=== PATIENT | female | born 1955 | race Caucasian/White ===

== ENCOUNTER 2016-10-30 08:29 | Emergency (ER) | payer SELFPAY ==
[2016-10-30] MEDS ORDERED: Albuterol/Ipratropium 3.0-0.5 MG/3 ML Neb Soln NEB ONE (08:35)
--- NOTE | 2016-10-30 08:38 | EDM.PDOC ---
ED HPI GENERAL MEDICAL PROBLEM - General Stated Complaint: SHORTNESS OF BREATH Time Seen by Provider: 10/30/16 08:30 - History of Present Illness INITIAL COMMENTS - FREE TEXT/NARRATIVE: HISTORY AND PHYSICAL: History of present illness: Patient 61-year-old white female has been concern of cough x2 weeks it's become productive she gets some shortness of breath she denies chest pain nausea vomiting fever chills or other complaints patient has had similar episodes in the past diagnosed bronchitis and has used an inhaler prior Review of systems: As per history of present illness and below otherwise all systems reviewed and negative. Past medical history: As per history of present illness and as reviewed below otherwise noncontributory. Surgical history: As per history of present illness and as reviewed below otherwise noncontributory. Social history: No reported history of drug or alcohol abuse. Family history: As per history of present illness and as reviewed below otherwise noncontributory. Physical exam: HEENT: Atraumatic, normocephalic, pupils reactive, negative for conjunctival pallor or scleral icterus, mucous membranes moist, throat clear, neck supple, nontender, trachea midline. Lungs: Slightly diminished reran expiratory wheeze noted, breath sounds equal bilaterally, chest nontender. Heart: S1S2, regular, negative for clicks, rubs, or JVD. Abdomen: Soft, nondistended, nontender. Negative for masses or hepatosplenomegaly. Negative for costovertebral tenderness. Pelvis: Stable nontender. Genitourinary: Deferred. Rectal: Deferred. Extremities: Atraumatic, negative for cords or calf pain. Neurovascular unremarkable. Neuro: Awake, alert, oriented. Cranial nerves II through XII unremarkable. Cerebellum unremarkable. Motor and sensory unremarkable throughout. Exam nonfocal. Diagnostics: Chest x-ray influenza screen Therapeutics: Albuterol ipratropium nebulizer Impression: #1 tracheobronchitis Definitive disposition and diagnosis as appropriate pending reevaluation and review of above. 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 Musculoskeletal History: Reports: None Neurological History: Reports: None Psychiatric History: Reports: None Endocrine/Metabolic History: Reports: None Hematologic History: Reports: None Immunologic History: Reports: None Oncologic (Cancer) History: Reports: Cervix Dermatologic History: Reports: None - Infectious Disease History Infectious Disease History: Reports: None - Past Surgical History Head Surgeries/Procedures: Reports: None Female Surgical History: Reports: Hysterectomy Other Female Surgeries/Procedures: cervical CA had chemo and radiation treatment 8 years ago Musculoskeletal Surgical History: Reports: None Other Oncologic Surgeries/Procedures: cervical CA Social & Family History - Tobacco Use Smoking Status *Q: Current Every Day Smoker Years of Tobacco use: 20 Packs/Tins Daily: 1 Used Tobacco, but Quit: No Second Hand Smoke Exposure: No - Caffeine Use Caffeine Use: Reports: Soda - Recreational Drug Use Recreational Drug Use: No ED ROS GENERAL - Review of Systems Review Of Systems: ROS reveals no pertinent complaints other than HPI. ED EXAM, GENERAL - Physical Exam Exam: See Below (See dictation) Departure - Departure Time of Disposition: 08:37 Disposition: Home, Self-Care 01 Condition: good Clinical Impression: Tracheobronchitis Additional Instructions: The following information is given to patients seen in the emergency department who are being discharged to home. This information is to outline your options for follow-up care. We provide all patients seen in our emergency department with a follow-up referral. The need for follow-up, as well as the timing and circumstances, are variable depending upon the specifics of your emergency department visit. If you don't have a primary care physician on staff, we will provide you with a referral. We always advise you to contact your personal physician following an emergency department visit to inform them of the circumstance of the visit and for follow-up with them and/or the need for any referrals to a consulting specialist. The emergency department will also refer you to a specialist when appropriate. This referral assures that you have the opportunity for followup care with a specialist. All of these measure are taken in an effort to provide you with optimal care, which includes your followup. Under all circumstances we always encourage you to contact your private physician who remains a resource for coordinating your care. When calling for followup care, please make the office aware that this follow-up is from your recent emergency room visit. If for any reason you are refused follow-up, please contact the [facility] emergency department at and asked to speak to the emergency department charge nurse. Augmentin as prescribed albuterol as prescribed follow up primary medical doctor one to 2 days quit smoking and return as needed as discussed
--- NOTE | 2016-10-30 09:20 | CR ---
EXAMINATION: Two-view chest (PA and Lateral views). HISTORY: Cough. FINDINGS: The trachea is midline. The cardiomediastinal silhouette is within normal limits. No pulmonary infil trates, effusions or pneumothorax. Osseous structures appear unremarkable. IMPRESSION: No acute cardiopulmonary process.
[2016-10-30 09:32] VITALS: BP 121/65
== END 2016-10-30 09:42 | disposition home or self-care (01) ==
LOC: MW.ED 08:29
DX: J40 Bronchitis, not specified as acute or chronic (principal); I10 Essential (primary) hypertension; F17.210 Nicotine dependence, cigarettes, uncomplicated; Z79.899 Other long term (current) drug therapy; Z90.710 Acquired absence of both cervix and uterus; Z85.41 Personal history of malignant neoplasm of cervix uteri
CPT/HCPCS: 71020; 71020-26; 87804; 94664; 99283; 99285-25

== ENCOUNTER 2016-11-16 17:08 | Emergency (ER) | payer SELFPAY ==
[2016-11-16 17:44] VITALS: BP 163/89
--- NOTE | 2016-11-16 17:54 | EDM.PDOC ---
ED HPI RENAL/ - General Chief Complaint: Genitourinary Problem Stated Complaint: BLADDER INFECTION,FEVER, OUT OF BP MEDICATION Time Seen by Provider: 11/16/16 17:42 Source of Information: Reports: Patient History Limitations: Reports: No limitations - History of Present Illness INITIAL COMMENTS - FREE TEXT/NARRATIVE: History of present illness: 61 year-old female presenting with multiple complaints [Patient presents with complaints of burning, urgency, frequency indicates that she has chronic UTIs status post radiation therapy. Patient also indicates she is out of her antihypertensives at this time] Review of systems: As per history of present illness and below otherwise all systems reviewed and negative. Past medical history: As per history of present illness and as reviewed below otherwise noncontributory. Surgical history: As per history of present illness and as reviewed below otherwise noncontributory. Social history: No reported history of drug or alcohol abuse. Family history: As per history of present illness and as reviewed below otherwise noncontributory. Physical exam: HEENT: Atraumatic, normocephalic, pupils reactive, negative for conjunctival pallor or scleral icterus, mucous membranes moist, throat clear, neck supple, nontender, trachea midline. Lungs: Clear to auscultation, breath sounds equal bilaterally, chest nontender. Heart: S1S2, regular, negative for clicks, rubs, or JVD. Abdomen: Soft, nondistended, nontender. Negative for masses or hepatosplenomegaly. Negative for costovertebral tenderness. Pelvis: Stable nontender. Genitourinary: Deferred. Rectal: Deferred. Extremities: Atraumatic, negative for cords or calf pain. Neurovascular unremarkable. Neuro: Awake, alert, oriented. Cranial nerves II through XII unremarkable. Cerebellum unremarkable. Motor and sensory unremarkable throughout. Exam nonfocal. Global assessment is benign save for subjective complaints the patient listed above in history of present illness. Diagnostics: [UA] Therapeutics: [] Impression: [UTI] Plan: [Refill blood pressure medicine/antibiotics and Pyridium] Definitive disposition and diagnosis as appropriate pending reevaluation and review of above. - Related Data Allergies/ADRs: Allergies Allergy/AdvReac Type Severity Reaction Status Date / Time No Known Allergies Allergy Verified 07/12/16 12:13 Home Meds: Home Meds Lisinopril 10 mg PO DAILY #90 tablet 11/16/16 [Rx] Nitrofurantoin Monohyd/M-Cryst [Macrobid 100 mg Capsule] 100 mg PO BID #20 capsule 11/16/16 [Rx] Phenazopyridine HCl [Pyridium] 200 mg PO Q8HR #12 tablet 11/16/16 [Rx] atorvaSTATin [Lipitor] 20 mg PO DAILY #90 tablet 11/16/16 [Rx] Past Medical History HEENT History: Reports: None Cardiovascular History: Reports: High cholesterol, Hypertension Respiratory History: Reports: None Gastrointestinal History: Reports: Cholelithiasis Genitourinary History: Reports: None 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 Musculoskeletal History: Reports: None Neurological History: Reports: None Psychiatric History: Reports: None Endocrine/Metabolic History: Reports: None Hematologic History: Reports: None Immunologic History: Reports: None Oncologic (Cancer) History: Reports: Cervix Dermatologic History: Reports: None - Infectious Disease History Infectious Disease History: Reports: None - Past Surgical History Head Surgeries/Procedures: Reports: None Female Surgical History: Reports: Hysterectomy Other Female Surgeries/Procedures: cervical CA had chemo and radiation treatment 8 years ago Musculoskeletal Surgical History: Reports: None Other Oncologic Surgeries/Procedures: cervical CA Social & Family History - Family History Family Medical History: Noncontributory - Tobacco Use Smoking Status *Q: Current Every Day Smoker Years of Tobacco use: 30 Packs/Tins Daily: 1 Used Tobacco, but Quit: No Second Hand Smoke Exposure: No - Caffeine Use Caffeine Use: Reports: Soda - Recreational Drug Use Recreational Drug Use: No ED ROS GENERAL - Review of Systems Review Of Systems: See Below (History of present illness) ED EXAM, RENAL/ - Physical Exam Exam: See Below (History of present illness) Course - Vital Signs Last Recorded V/S: Last Vital Signs Temp 37.2 C 11/16/16 17:40 Pulse 118 H 11/16/16 17:40 Resp 18 11/16/16 17:40 BP 163/89 H 11/16/16 17:40 Pulse Ox 96 11/16/16 17:40 - Orders/Labs/Meds Labs: Laboratory Tests 11/16/16 Range/Units 17:45 Urine Color YELLOW Urine Appearance SLT CLOUDY Urine pH 5.5 (5.0-8.0) Ur Specific [place] 1.010 (1.001-1.035) Urine Protein TRACE (NEGATIVE) mg/dL Urine Glucose (UA) NEGATIVE (NEGATIVE) mg/dL Urine Ketones NEGATIVE (NEGATIVE) mg/dL Urine Occult Blood LARGE H (NEGATIVE) Urine Nitrite POSITIVE H (NEGATIVE) Urine Bilirubin NEGATIVE (NEGATIVE) Urine Urobilinogen 0.2 (<2.0) EU/dL Ur Leukocyte Esterase MODERATE (NEGATIVE) Urine RBC 4-6 (0-2/HPF) Urine WBC 70-75 (0-5/HPF) Ur Epithelial Cells FEW (NONE-FEW) Urine Bacteria 3+ H (NEGATIVE) Departure - Departure Time of Disposition: 18:22 Disposition: Home, Self-Care 01 Condition: good Clinical Impression: UTI, Urinary tract infectious disease Prescriptions: Phenazopyridine HCl [Pyridium] 200 mg PO Q8HR #12 tablet Lisinopril 10 mg PO DAILY #90 tablet Nitrofurantoin Monohyd/M-Cryst [Macrobid 100 mg Capsule] 100 mg PO BID #20 capsule atorvaSTATin [Lipitor] 20 mg PO DAILY #90 tablet Instructions: Urinary Tract Infection, Adult, [id number] Forms: ED Department Discharge Additional Instructions: The following information is given to patients seen in the emergency department who are being discharged to home. This information is to outline your options for follow-up care. We provide all patients seen in our emergency department with a follow-up referral. The need for follow-up, as well as the timing and circumstances, are variable depending upon the specifics of your emergency department visit. If you don't have a primary care physician on staff, we will provide you with a referral. We always advise you to contact your personal physician following an emergency department visit to inform them of the circumstance of the visit and for follow-up with them and/or the need for any referrals to a consulting specialist. The emergency department will also refer you to a specialist when appropriate. This referral assures that you have the opportunity for follow-up care with a specialist. All of these measure are taken in an effort to provide you with optimal care, which includes your follow-up. Under all circumstances we always encourage you to contact your private physician who remains a resource for coordinating your care. When calling for follow-up care, please make the office aware that this follow-up is from your recent emergency room visit. If for any reason you are refused follow-up, please contact the [facility] Emergency Department at and asked to speak to the emergency department charge nurse. I refilled her blood pressure medicine please begin to follow up with primary care provider because medication is the only way to manage her blood pressures are labs that need to be monitored You have been prescribe antibiotics for her UTI as well as a medication to help with the pain and discomfort of the infection Followup with PCP 1-2 days ED as needed as discussed
== END 2016-11-16 18:33 | disposition home or self-care (01) ==
LOC: MW.ED 17:08
DX: N39.0 Urinary tract infection, site not specified (principal); E78.00 Pure hypercholesterolemia, unspecified; I10 Essential (primary) hypertension; F17.210 Nicotine dependence, cigarettes, uncomplicated; Z79.899 Other long term (current) drug therapy
CPT/HCPCS: 81001; 99283

== ENCOUNTER 2017-04-06 18:37 | Emergency (ER) | payer SELFPAY ==
--- NOTE | 2017-04-06 19:18 | EDM.PDOC ---
ED HPI GENERAL MEDICAL PROBLEM - General Chief Complaint: Respiratory Problem Stated Complaint: CONGESTION ABDOMINAL Time Seen by Provider: 04/06/17 19:00 - History of Present Illness INITIAL COMMENTS - FREE TEXT/NARRATIVE: HISTORY AND PHYSICAL: History of present illness: Patient 61-year-old white female who presents with a concern of cough and congestion she is a smoker she states it's been mildly productive she denies fever chills nausea vomiting chest pain palpitations or other concern. Review of systems: As per history of present illness and below otherwise all systems reviewed and negative. Past medical history: As per history of present illness and as reviewed below otherwise noncontributory. Surgical history: As per history of present illness and as reviewed below otherwise noncontributory. Social history: No reported history of drug or alcohol abuse. Family history: As per history of present illness and as reviewed below otherwise noncontributory. Physical exam: HEENT: Atraumatic, normocephalic, pupils reactive, negative for conjunctival pallor or scleral icterus, mucous membranes moist, throat clear, neck supple, nontender, trachea midline. Lungs: Clear to auscultation, breath sounds equal bilaterally, chest nontender. Heart: S1S2, regular, negative for clicks, rubs, or JVD. Abdomen: Soft, nondistended, nontender. Negative for masses or hepatosplenomegaly. Negative for costovertebral tenderness. Pelvis: Stable nontender. Genitourinary: Deferred. Rectal: Deferred. Extremities: Atraumatic, negative for cords or calf pain. Neurovascular unremarkable. Neuro: Awake, alert, oriented. Cranial nerves II through XII unremarkable. Cerebellum unremarkable. Motor and sensory unremarkable throughout. Exam nonfocal. Diagnostics: Chest x-ray Therapeutics: None Impression: #1 tracheobronchitis Definitive disposition and diagnosis as appropriate pending reevaluation and review of above. right rib Pain Score (Numeric/FACES): 6 - Related Data Allergies Allergy/AdvReac Type Severity Reaction Status Date / Time No Known Allergies Allergy Verified 07/12/16 12:13 Home Meds: Home Meds Lisinopril 10 mg PO DAILY #90 tablet 11/16/16 [Rx] atorvaSTATin [Lipitor] 20 mg PO DAILY #90 tablet 11/16/16 [Rx] Aspirin 81 mg PO BEDTIME 04/06/17 [History] Past Medical History HEENT History: Reports: None Cardiovascular History: Reports: High Cholesterol, Hypertension Respiratory History: Reports: None Gastrointestinal History: Reports: Cholelithiasis Genitourinary History: Reports: None [employer] History: Reports: None Musculoskeletal History: Reports: None Neurological History: Reports: None Psychiatric History: Reports: None Endocrine/Metabolic History: Reports: None Hematologic History: Reports: None Immunologic History: Reports: None Oncologic (Cancer) History: Reports: Cervix Dermatologic History: Reports: None - Infectious Disease History Infectious Disease History: Reports: None - Past Surgical History Head Surgeries/Procedures: Reports: None Female Surgical History: Reports: Hysterectomy Other Female Surgeries/Procedures: cervical CA had chemo and radiation treatment 8 years ago Musculoskeletal Surgical History: Reports: None Other Oncologic Surgeries/Procedures: cervical CA Social & Family History - Family History Family Medical History: Noncontributory - Tobacco Use Smoking Status *Q: Current Every Day Smoker Years of Tobacco use: 20 Packs/Tins Daily: 0.1 Used Tobacco, but Quit: No Second Hand Smoke Exposure: No - Caffeine Use Caffeine Use: Reports: Soda, Tea - Recreational Drug Use Recreational Drug Use: No ED ROS GENERAL - Review of Systems Review Of Systems: ROS reveals no pertinent complaints other than HPI. ED EXAM, GENERAL - Physical Exam Exam: See Below (See dictation) Course - Vital Signs Last Recorded V/S: Last Vital Signs Temp 36.3 C 04/06/17 18:54 Pulse 102 H 04/06/17 18:54 Resp 18 04/06/17 18:54 BP 141/87 H 04/06/17 18:54 Pulse Ox 93 L 04/06/17 18:54 Departure - Departure Time of Disposition: 19:17 Disposition: Home, Self-Care 01 Condition: Good Clinical Impression: Tracheobronchitis - Discharge Information Referrals: PCP,None [Primary Care Provider] - Additional Instructions: The following information is given to patients seen in the emergency department who are being discharged to home. This information is to outline your options for follow-up care. We provide all patients seen in our emergency department with a follow-up referral. The need for follow-up, as well as the timing and circumstances, are variable depending upon the specifics of your emergency department visit. If you don't have a primary care physician on staff, we will provide you with a referral. We always advise you to contact your personal physician following an emergency department visit to inform them of the circumstance of the visit and for follow-up with them and/or the need for any referrals to a consulting specialist. The emergency department will also refer you to a specialist when appropriate. This referral assures that you have the opportunity for followup care with a specialist. All of these measure are taken in an effort to provide you with optimal care, which includes your followup. Under all circumstances we always encourage you to contact your private physician who remains a resource for coordinating your care. When calling for followup care, please make the office aware that this follow-up is from your recent emergency room visit. If for any reason you are refused follow-up, please contact the [facility] emergency department at and asked to speak to the emergency department charge nurse. Follow-up primary medical doctor 1-2 days quit smoking Augmentin albuterol as prescribed return as needed as discussed
[2017-04-06 20:01] VITALS: BP 121/64
--- NOTE | 2017-04-07 15:14 | CR ---
EXAM DATE: 04/06/17 PATIENT'S AGE: 61 Patient: LESLI MARQUEZ Facility: [place], [place] Site . Site : [id number] Study: XRay Chest [id number] 7:38:37 PM Ordering Physician: Eulalia Fraire Final Report: CHEST 2 VIEWS INDICATION: Cough. IMPRESSION: Normal heart size and vascular pattern. Lungs are clear. No pneumothorax or pleural abnormality. Dictated by Abe Olvera MD @ Apr 06 2017 7:43PM (Electronic Signature) Report Signed by Proxy. [facility]
== END 2017-04-06 20:04 | disposition home or self-care (01) ==
LOC: MW.ED 18:37
DX: J40 Bronchitis, not specified as acute or chronic (principal); F17.210 Nicotine dependence, cigarettes, uncomplicated; Z90.710 Acquired absence of both cervix and uterus; Z85.41 Personal history of malignant neoplasm of cervix uteri; I10 Essential (primary) hypertension; E78.00 Pure hypercholesterolemia, unspecified; Z79.899 Other long term (current) drug therapy
CPT/HCPCS: 71020; 71020-26; 99282; 99284

== ENCOUNTER 2017-06-19 10:41 | Emergency (ER) | payer SELFPAY ==
[2017-06-19] MEDS ORDERED: Albuterol/Ipratropium 3.0-0.5 MG/3 ML Neb Soln NEB ONE (11:00)
--- NOTE | 2017-06-19 11:02 | EDM.PDOC ---
ED HPI GENERAL MEDICAL PROBLEM - General Chief Complaint: Respiratory Problem Stated Complaint: COUGH Time Seen by Provider: 06/19/17 11:01 Source of Information: Reports: Patient - History of Present Illness INITIAL COMMENTS - FREE TEXT/NARRATIVE: HISTORY AND PHYSICAL: History of present illness: []Patient presents with 90-oalt-kkeq history of smoking, for 2-3 weeks and congestion no fever chills sweats no chest pain shortness breath headache dizziness palpitation about a urine symptoms Review of systems: As per history of present illness and below otherwise all systems reviewed and negative. Past medical history: As per history of present illness and as reviewed below otherwise noncontributory. Surgical history: As per history of present illness and as reviewed below otherwise noncontributory. Social history: No reported history of drug or alcohol abuse. Family history: As per history of present illness and as reviewed below otherwise noncontributory. Physical exam: HEENT: Atraumatic, normocephalic, pupils reactive, negative for conjunctival pallor or scleral icterus, mucous membranes moist, throat clear, neck supple, nontender, trachea midline. Lungs: Clear to auscultation, breath sounds equal bilaterally, chest nontender. Heart: S1S2, regular, negative for clicks, rubs, or JVD. Abdomen: Soft, nondistended, nontender. Negative for masses or hepatosplenomegaly. Negative for costovertebral tenderness. Pelvis: Stable nontender. Genitourinary: Deferred. Rectal: Deferred. Extremities: Atraumatic, negative for cords or calf pain. Neurovascular unremarkable. Neuro: Awake, alert, oriented. Cranial nerves II through XII unremarkable. Cerebellum unremarkable. Motor and sensory unremarkable throughout. Exam nonfocal. Diagnostics: []Chest 2 views Influenza Therapeutics: []DuoNeb Z-Jimmy HFA Phenergan With Codeine to 40 mL Impression: []Acute bronchitis Definitive disposition and diagnosis as appropriate pending reevaluation and review of above. - Related Data Allergies Allergy/AdvReac Type Severity Reaction Status Date / Time No Known Allergies Allergy Verified 06/19/17 11:20 Home Meds: Home Meds atorvaSTATin [Lipitor] 20 mg PO DAILY #90 tablet 11/16/16 [Rx] Aspirin 81 mg PO BEDTIME 04/06/17 [History] Lisinopril 20 mg PO DAILY 06/19/17 [History] Past Medical History HEENT History: Reports: None Cardiovascular History: Reports: High Cholesterol, Hypertension Respiratory History: Reports: None Gastrointestinal History: Reports: Cholelithiasis Genitourinary History: Reports: None BAKERY HELPER History: Reports: None Musculoskeletal History: Reports: None Neurological History: Reports: None Psychiatric History: Reports: None Endocrine/Metabolic History: Reports: None Hematologic History: Reports: None Immunologic History: Reports: None Oncologic (Cancer) History: Reports: Cervix Dermatologic History: Reports: None - Infectious Disease History Infectious Disease History: Reports: None - Past Surgical History Head Surgeries/Procedures: Reports: None Female Surgical History: Reports: Hysterectomy Other Female Surgeries/Procedures: cervical CA had chemo and radiation treatment 8 years ago Musculoskeletal Surgical History: Reports: None Other Oncologic Surgeries/Procedures: cervical CA Social & Family History - Family History Family Medical History: Noncontributory - Tobacco Use Smoking Status *Q: Current Every Day Smoker Years of Tobacco use: 20 Packs/Tins Daily: 0.1 Used Tobacco, but Quit: No Second Hand Smoke Exposure: No - Caffeine Use Caffeine Use: Reports: Soda, Tea - Recreational Drug Use Recreational Drug Use: No ED ROS GENERAL - Review of Systems Review Of Systems: ROS reveals no pertinent complaints other than HPI. ED EXAM, GENERAL - Physical Exam Exam: See Below Course - Vital Signs Last Recorded V/S: Last Vital Signs Temp 97.9 F 06/19/17 11:00 Pulse 88 06/19/17 11:00 Resp 18 06/19/17 11:00 BP 100/71 06/19/17 11:00 Pulse Ox 97 06/19/17 11:00 - Orders/Labs/Meds Orders: Active Orders 24 hr Category Date Time Status RT Aerosol Therapy [RC] ASDIRECTED Care 06/19/17 11:00 Active Chest 2V [CR] Stat Exams 06/19/17 11:00 Taken Meds: Medications Discontinued Medications Generic Name Dose Route Start Last Admin Trade Name Guillaumeq PRN Reason Stop Dose Admin Albuterol/Ipratropium 3 ml 06/19/17 11:00 06/19/17 11:13 Duoneb 3.0-0.5 Mg/3 Ml NEB 06/19/17 11:01 3 ml ONETIME ONE Administration Departure - Departure Time of Disposition: 11:50 Disposition: Home, Self-Care 01 Condition: Good Clinical Impression: Acute bronchitis - Discharge Information Forms: ED Department Discharge Additional Instructions: Medication as prescribed Return if symptoms persist or worsen Follow-up with primary care in 2 weeks sooner as needed [facility] [address] [place] [id number] The following information is given to patients seen in the emergency department who are being discharged to home. This information is to outline your options for follow-up care. We provide all patients seen in our emergency department with a follow-up referral. The need for follow-up, as well as the timing and circumstances, are variable depending upon the specifics of your emergency department visit. If you don't have a primary care physician on staff, we will provide you with a referral. We always advise you to contact your personal physician following an emergency department visit to inform them of the circumstance of the visit and for follow-up with them and/or the need for any referrals to a consulting specialist. The emergency department will also refer you to a specialist when appropriate. This referral assures that you have the opportunity for follow-up care with a specialist. All of these measure are taken in an effort to provide you with optimal care, which includes your follow-up. Under all circumstances we always encourage you to contact your private physician who remains a resource for coordinating your care. When calling for follow-up care, please make the office aware that this follow-up is from your recent emergency room visit. If for any reason you are refused follow-up, please contact the emergency department at and asked to speak to the emergency department charge nurse. - My Orders Last 24 Hours: My Active Orders 06/19/17 11:00 RT Aerosol Therapy [RC] ASDIRECTED Chest 2V [CR] Stat - Assessment/Plan Last 24 Hours: My Active Orders 06/19/17 11:00 RT Aerosol Therapy [RC] ASDIRECTED Chest 2V [CR] Stat
[2017-06-19 12:08] VITALS: BP 92/58
--- NOTE | 2017-06-21 11:26 | CR ---
EXAM DATE: 06/19/17 PATIENT'S AGE: 61 Patient: LESLI MARQUEZ Facility: [place], [place] Site . Site : [id number] Study: XRay Chest [id number]/18/2017 11:43:25 AM Ordering Physician: Monica Rivers Final Report: INDICATION: Chest pain and shortness of breath TECHNIQUE: Chest 2 views COMPARISON: None FINDINGS: CARDIOVASCULATURE AND MEDIASTINUM: Heart size and vasculature are normal in caliber and appearance. Mediastinum is within normal limits. LUNGS AND PLEURAL SPACES: Lungs are clear. No sign of infiltrate or mass. No sign of pleural effusion. No pneumothorax. BONES AND SOFT TISSUES: No significant findings. IMPRESSION: No acute or significant findings. Dictated by Guanaco Grimaldo MD @ 06/19/2017 12:22:36 PM Dictated by: Guanaco Grimaldo MD @ 06/19/2017 12:22:44 (Electronic Signature) Report Signed by Proxy. [facility]ENTER[facility]licia
== END 2017-06-19 12:14 | disposition home or self-care (01) ==
LOC: MW.ED 10:41
DX: J20.9 Acute bronchitis, unspecified (principal); I10 Essential (primary) hypertension; F17.210 Nicotine dependence, cigarettes, uncomplicated; Z79.82 Long term (current) use of aspirin; Z79.899 Other long term (current) drug therapy
CPT/HCPCS: 71020; 71020-26; 87804; 94640; 99282; 99284-25